=== PATIENT | female | born 1985 | race Hispanic/Latino ===

== ENCOUNTER → 2024-11-17 | Outpatient (CLI) | payer OTHER ==
--- NOTE | 2024-11-17 15:27 | HMCIMG ---
Exam Type: US PELVIC NON-OB COMP Clinical Information: Unspecified urinary incontinence Comparison: None Findings: The uterus is normal in size and echogenicity. The endometrial lining is normal in thickness. No intrauterine or ectopic seen. The ovaries are normal in size and echogenicity. Vascular Doppler flow exam and spectral analysis of waveforms analysis is unremarkable bilaterally. There is preserved vascularity to both ovaries on Doppler evaluation. Specifically, there is no evidence of ovarian torsion. No free fluid is noted throughout the cul-de-sac. There are no adnexal abnormalities. No other significant abnormalities are seen. No fluid collections or masses or free fluid are identified in the pelvis. Impression: NORMAL EXAM. No evidence of uterine pathology. No evidence of adnexal abnormalities or ovarian torsion. No intrauterine or ectopic seen.
== END | disposition home or self-care (01) ==
LOC: RAH 14:20
PROVIDERS: ATTEND Nurse Practitioner Adult Health
DX: R32 Unspecified urinary incontinence (principal)
CPT/HCPCS: 76856